=== PATIENT | male | born 2000 | race American Indian/Alaskan Native ===

== ENCOUNTER 2019-11-16 17:11 | Emergency (ER) | payer OTHER ==
--- NOTE | 2019-11-16 18:32 | EDPHYS ---
Physician Documentation [facility] Name: Frank Vaz Age: 19 yrs Sex: Male : 2000 Arrival Date: 11/16/2019 Time: 17:13 Bed 16 Private MD: ED Physician Shyam Akbar HPI: 11/16 17:45 This 29 yrs old Other Male presents to ER via Ambulatory with complaints of Sore Throat.la1 17:45 The patient presents with sore throat. The patient describes throat pain as dry, la1 scratchy. Onset: The symptoms/episode began/occurred 4 day(s) ago. Severity of symptoms: At their worst the symptoms were mild. Modifying factors: The symptoms are alleviated by nothing, the symptoms are aggravated by swallowing, Patient's oral intake status: good. Associated signs and symptoms: Pertinent positives: chills, cough. The patient has not experienced similar symptoms in the past. Historical: - Allergies: 17:38 No Known Allergies; ph - Home Meds: 17:38 None [Active]; ph - PMHx: 17:38 None; ph - Immunization history:: Adult Immunizations up to date. - Ebola Screening: : No symptoms or risks identified at this time. - Social history:: Smoking status: Patient uses tobacco products, denies chronic smoking, but will smoke occasionally. ROS: 17:45 Constitutional: Negative for fever, chills, and weight loss, Eyes: Negative for injury, la1 pain, redness, and discharge. 17:45 Neck: Negative for injury, pain, and swelling, Cardiovascular: Negative for chest pain, palpitations, and edema, Respiratory: Negative for shortness of breath, cough, wheezing, and pleuritic chest pain, Abdomen/GI: Negative for abdominal pain, nausea, vomiting, diarrhea, and constipation, Back: Negative for injury and pain, : Negative for injury, bleeding, discharge, and swelling, MS/Extremity: Negative for injury and deformity, Neuro: Negative for headache, weakness, numbness, tingling, and seizure. 17:45 ENT: Positive for sore throat. Exam: 17:48 Constitutional: This is a well developed, well nourished patient who is awake, alert, la1 and in no acute distress. Head/Face: Normocephalic, atraumatic. Eyes: Pupils equal round and reactive to light, extra-ocular motions intact. Periorbital areas with no swelling, redness, or edema. ENT: Nares patent. No nasal discharge, no septal abnormalities noted. Tympanic membranes are normal and external auditory canals are clear. Oropharynx with no redness, swelling, or masses, exudates, or evidence of obstruction, uvula midline. Mucous membranes moist. Neck: Trachea midline, Chest/axilla: Normal chest wall appearance and motion. Nontender with no deformity. No lesions are appreciated. Cardiovascular: Regular rate and rhythm with a normal S1 and S2. No gallops, murmurs, or rubs. Normal PMI, no JVD. No pulse deficits. Respiratory: Lungs have equal breath sounds bilaterally, clear to auscultation No rales, rhonchi or wheezes noted. No increased work of breathing, no retractions or nasal flaring. Abdomen/GI: Soft, non-tender, with normal bowel sounds. No distension or tympany. No guarding or rebound. No evidence of tenderness throughout. Skin: Warm, dry with normal turgor. Normal color with no rashes, no lesions, and no evidence of cellulitis. Vital Signs: 17:38 BP 126 / 71; Pulse 74; Resp 16; Temp 99.0; Pulse Ox 100% on R/A; Weight 77.11 kg; ph 18:49 BP 131 / 69; Pulse 71; Resp 17 S; Pulse Ox 100% on R/A; ca1 MDM: 17:39 Patient medically screened. la1 18:31 Data reviewed: vital signs, nurses notes, lab test result(s), and as a result, I will la1 discharge patient. Data interpreted: Pulse oximetry: on room air is 100 %. Interpretation: normal. Counseling: I had a detailed discussion with the patient and/or guardian regarding: the historical points, exam findings, and any diagnostic results supporting the discharge/admit diagnosis, lab results, the need for outpatient follow up, a family practitioner. Special discussion: Based on the history and exam findings, there is no indication for further emergent testing or inpatient evaluation. I discussed with the patient/guardian the need to see the primary care provider for further evaluation of the symptoms. 11/16 17:44 Order name: Flu la1 11/16 17:44 Order name: Strep la1 11/16 18:25 Order name: Throat Culture EDMS Administered Medications: No medications were administered Disposition: 19:02 Co-signature as Attending Physician, Shyam Akbar MD. rn Disposition: 11/16/19 18:31 Discharged to Home. Impression: Acute pharyngitis, Cough. - Condition is Stable. - Discharge Instructions: Acute Bronchitis, Adult, Pharyngitis, Cough, Adult, Sore Throat, [id number]. - Prescriptions for Tessalon Perles 100 mg Oral Capsule - take 1 capsule by ORAL route every 8 hours As needed; 15 capsule. - Medication Reconciliation Form, Thank You Letter form. - Follow up: Private Physician; When: 2 - 3 days; Reason: Recheck today's complaints, Re-evaluation by your physician. - Problem is new. - Symptoms have improved. - Notes: Try taking and antihistamine/decongestant combination medication such as claritin D or something similar. Signatures: Dispatcher [employer] EDGA Shyam Akbar MD MD rn Santhosh, Miguel Ángel, TWISTER TENDER-C TWISTER TENDER-Cla1 Leatha Brunson, RN RN ph Lalitha Croft RN RN ca1 Corrections: (The following items were deleted from the chart) 18:50 18:31 11/16/2019 18:31 Discharged to Home. Impression: Acute pharyngitis; Cough. ca1 Condition is Stable. Forms are Medication Reconciliation Form, Thank You Letter, Antibiotic Education, Prescription Opioid Use. Follow up: Private Physician; When: 2 - 3 days; Reason: Recheck today's complaints, Re-evaluation by your physician. Problem is new. Symptoms have improved. la1
--- NOTE | 2019-11-16 18:32 | ER ---
Nurse's Notes [facility] Name: Frank Vaz Age: 19 yrs Sex: Male : 2000 Arrival Date: 11/16/2019 Time: 17:13 Bed 16 Private MD: Diagnosis: Acute pharyngitis;Cough Presentation: 11/16 17:37 Presenting complaint: Patient states: Sore throat, sinus congestion, cough, and fever x ph 2-3 days. Transition of care: patient was not received from another setting of care. Onset of symptoms was November 16, 2019. Risk Assessment: Do you want to hurt yourself or someone else? Patient reports no desire to harm self or others. Initial Sepsis Screen: Does the patient meet any 2 criteria? No. Patient's initial sepsis screen is negative. Does the patient have a suspected source of infection? No. Patient's initial sepsis screen is negative. Care prior to arrival: None. 17:37 Method Of Arrival: Ambulatory ph 17:37 Acuity: MARIELOS 4 ph Historical: - Allergies: 17:38 No Known Allergies; ph - Home Meds: 17:38 None [Active]; ph - PMHx: 17:38 None; ph - Immunization history:: Adult Immunizations up to date. - Ebola Screening: : No symptoms or risks identified at this time. - Social history:: Smoking status: Patient uses tobacco products, denies chronic smoking, but will smoke occasionally. Screenin:46 Abuse screen: Denies threats or abuse. Denies injuries from another. Nutritional ca1 screening: No deficits noted. Tuberculosis screening: No symptoms or risk factors identified. Fall Risk None identified. Assessment: 17:46 General: Appears in no apparent distress. comfortable, Behavior is calm, cooperative, ca1 appropriate for age, Reports chills for fever for > 3 days. Pain: Complains of pain in throat Pain currently is 7 out of 10 on a pain scale. Pain began 2-3 days ago. Neuro: Level of Consciousness is awake, alert, obeys commands, Oriented to person, place, time, situation, Appropriate for age. Cardiovascular: Heart tones S1 S2 present Capillary refill < 3 seconds Patient's skin is warm and dry. Respiratory: Reports cough that is Airway is patent Respiratory effort is even, unlabored, Respiratory pattern is regular, symmetrical, Breath sounds are clear bilaterally. GI: Abdomen is flat, non-distended, Bowel sounds present X 4 quads. Abd is soft and non tender X 4 quads. : No deficits noted. No signs and/or symptoms were reported regarding the genitourinary system. EENT: Throat is pink Reports nasal congestion. Derm: Skin is intact, is healthy with good turgor, Skin is pink, warm \T\ dry. Musculoskeletal: Circulation, motion, and sensation intact. Capillary refill < 3 seconds, Range of motion: intact in all extremities. 18:49 Reassessment: Patient appears in no apparent distress at this time. Patient is alert, ca1 oriented x 3, equal unlabored respirations, skin warm/dry/pink. Vital Signs: 17:38 BP 126 / 71; Pulse 74; Resp 16; Temp 99.0; Pulse Ox 100% on R/A; Weight 77.11 kg; ph 18:49 BP 131 / 69; Pulse 71; Resp 17 S; Pulse Ox 100% on R/A; ca1 ED Course: 17:13 Patient arrived in ED. as 17:30 Miguel Ángel Trevizo FNP-C [facility]. la1 17:30 Shyam Akbar MD is Attending Physician. la1 17:38 Triage completed. ph 17:38 Lalitha Croft RN is Primary Nurse. ca1 17:38 Arm band placed on Patient placed in an exam room. ph 17:46 Patient has correct armband on for positive identification. Bed in low position. Call ca1 light in reach. Side rails up X 1. Pulse ox on. NIBP on. Warm blanket given. 17:46 No provider procedures requiring assistance completed. Patient did not have IV access ca1 during this emergency room visit. Administered Medications: No medications were administered Outcome: 18:31 Discharge ordered by . la1 18:49 Discharged to home ambulatory. ca1 18:49 Condition: stable 18:49 Discharge instructions given to patient, Instructed on discharge instructions, follow up and referral plans. medication usage, Demonstrated understanding of instructions, follow-up care, medications, Prescriptions given X 1. 18:50 Patient left the ED. ca1 Signatures: Yael Cespedes as Miguel Ángel Trevizo FNP-C LICENSE DISTRIBUTOR-Cla1 Leatha Brunson RN RN Lalitha Croft RN RN ca1 Corrections: (The following items were deleted from the chart) 17:56 17:46 General: Appears in no apparent distress. comfortable, Behavior is calm, ca1 cooperative, appropriate for age, Reports chills for fever for > 3 days, ca1 17:46 Respiratory: Airway is patent Respiratory effort is even, unlabored, Respiratory ca1 pattern is regular, symmetrical, Breath sounds are clear bilaterally. ca1 : 17:46 EENT: Throat is pink ca1 ca1
[2019-11-16 18:57] VITALS: TEMP 99; O2SAT 100
[2019-11-16 18:58] VITALS: BP 131/69
== END 2019-11-16 18:50 | disposition home or self-care (01) ==
LOC: ER 17:11 → EDBD 17:11 → ER 18:50
DX: J02.9 Acute pharyngitis, unspecified (principal); R05 Cough; F17.210 Nicotine dependence, cigarettes, uncomplicated
CPT/HCPCS: 87070; 87081; 87804; 99283